=== PATIENT | female | born 1985 | race African-American/Black ===

== ENCOUNTER 2016-06-11 18:21 | Inpatient (IN) | payer OTHER, SELFPAY ==
[2016-06-11] MEDS ORDERED: SODIUM CHLORIDE 0.9% 1,000 ML IV ONE (19:33)
[2016-06-11] MEDS ORDERED: ONDANSETRON 4 MG/2 ML VIAL IVP STA (19:34)
--- NOTE | 2016-06-11 19:36 | ED ---
Abdominal Pain HPI <Quinten Brewer - Last Filed: 06/11/16 21:19> - General Source: patient, RN notes reviewed Mode of arrival: ambulatory Limitations: no limitations <Monica Landaverde - Last Filed: 06/12/16 03:24> - General Chief Complaint: Abdominal Pain Stated Complaint: abdominal pain Time Seen by Provider: 06/11/16 19:28 - History of Present Illness Initial Comments: Patient 30-year-old female presents to the emergency room for evaluation of lower abdominal cramping. Patient states she began developing episodes of diarrhea and vomiting Saturday night into Saturday. Patient states that she took Imodium and has been unable to have a bowel movement for the past 24 hours. Patient states she has been having an increase in abdominal cramping. Patient states pain is diffuse. Patient states she is nauseous and has been vomiting. Patient denies pain or burning during urination, trouble urinating or blood in urine. Patient denies abdominal surgeries. Patient denies fevers or chills. Patient denies any significant past medical history. Patient denies recent travel outside the country. Patient denies new foods. Patient denies alcohol use or illicit drug use. (Monica Landaverde) - Related Data Home Medications Medication Instructions Recorded Confirmed Loperamide [Imodium] 6 mg PO QID PRN 06/11/16 06/11/16 Allergies Allergy/AdvReac Type Severity Reaction Status Date / Time No Known Allergies Allergy Verified 06/11/16 22:45 Review of Systems ROS Other: All systems not noted in ROS Statement are negative. <Quinten Brewer - Last Filed: 06/11/16 21:19> ROS Other: All systems not noted in ROS Statement are negative. <Monica Landaverde - Last Filed: 06/12/16 03:24> ROS Statement: Those systems with pertinent positive or pertinent negative responses have been documented in the HPI. Past Medical History Past Medical History: No Reported History History of Any Multi-Drug Resistant Organisms: None Reported Past Surgical History: No Surgical Hx Reported Past Psychological History: Anxiety, Depression Smoking Status: Former smoker Past Alcohol Use History: None Reported Past Drug Use History: None Reported - Past Family History Mother Family Medical History: Rheumatoid Arthritis (RA) <Monica Landaverde - Last Filed: 06/12/16 03:24> General Exam <Quinten Brewer - Last Filed: 06/11/16 21:19> Limitations: no limitations General appearance: alert, in no apparent distress Head exam: Present: atraumatic, normocephalic, normal inspection Eye exam: Present: normal appearance ENT exam: Present: normal exam Neck exam: Present: normal inspection Respiratory exam: Present: normal lung sounds bilaterally. Absent: respiratory distress Cardiovascular Exam: Present: regular rate, normal rhythm, normal heart sounds GI/Abdominal exam: Present: soft, tenderness (Tenderness on palpating over the right upper quadrant and left upper quadrant), normal bowel sounds. Absent: distended, guarding, rebound, rigid Extremities exam: Present: normal inspection Back exam: Present: normal inspection Neurological exam: Present: alert, oriented X3, CN II-XII intact, normal gait Psychiatric exam: Present: normal affect, normal mood Skin exam: Present: warm, dry, intact, normal color. Absent: rash <Monica Landaverde - Last Filed: 06/12/16 03:24> - General Exam Comments Initial Comments: Laying in exam room, no acute distress. (Monica Landaverde) Medical Decision Making - Lab Data Result diagrams: 06/11/16 19:44 06/11/16 19:44 <Quinten Brewer - Last Filed: 06/11/16 21:19> - Lab Data Result diagrams: 06/11/16 19:44 06/11/16 19:44 <Monica Landaverde - Last Filed: 06/12/16 03:24> - Medical Decision Making Patient is a 30-year-old female presents to the emergency room for evaluation of abdominal pain. Labs significant for acute pancreatitis. Case discussed with Dr. Brewer. Dr. Brewer also evaluated patient. Patient will be admitted for pain control and fluid hydration. I spoke with BRAYAN Ojeda, who agreed to admit for Dr. Dahl. (Monica Landaverde) - Lab Data Lab Results 06/11/16 06/11/16 06/11/16 Range/Units 19:44 19:44 19:44 WBC 7.0 (3.8-10.6) k/uL RBC 4.54 (3.80-5.40) m/uL Hgb 13.5 (11.4-16.0) gm/dL Hct 41.6 (34.0-46.0) % MCV 91.7 (80.0-100.0) fL MCH 29.8 (25.0-35.0) pg MCHC 32.5 (31.0-37.0) g/dL RDW 12.9 (11.5-15.5) % Plt Count 204 (150-450) k/uL Neutrophils % 70 % Lymphocytes % 17 % Monocytes % 8 % Eosinophils % 1 % Basophils % 1 % Neutrophils # 4.9 (1.3-7.7) k/uL Lymphocytes # 1.2 (1.0-4.8) k/uL Monocytes # 0.6 (0-1.0) k/uL Eosinophils # 0.0 (0-0.7) k/uL Basophils # 0.1 (0-0.2) k/uL Sodium 141 (137-145) mmol/L Potassium 3.9 (3.5-5.1) mmol/L Chloride 103 (98-107) mmol/L Carbon Dioxide 25 (22-30) mmol/L Anion Gap 13 mmol/L BUN 11 (7-17) mg/dL Creatinine 0.90 (0.52-1.04) mg/dL Est GFR (MDRD) Af Amer >60 (>60 ml/min/1.73 sqM) Est GFR (MDRD) Non-Af >60 (>60 ml/min/1.73 sqM) Glucose 98 (74-99) mg/dL Calcium 9.6 (8.4-10.2) mg/dL Magnesium 1.7 (1.6-2.3) mg/dL Total Bilirubin 0.5 (0.2-1.3) mg/dL AST 30 (14-36) U/L ALT 30 (9-52) U/L Alkaline Phosphatase 59 (38-126) U/L Total Protein 7.9 (6.3-8.2) g/dL Albumin 4.5 (3.5-5.0) g/dL Amylase 195 H (30-110) U/L Lipase 1003 H (23-300) U/L Urine Color Yellow Urine Appearance Clear (Clear) Urine pH 6.0 (5.0-8.0) Ur Specific Brilliant 1.033 (1.001-1.035) Urine Protein 1+ H (Negative) Urine Glucose (UA) Negative (Negative) Urine Ketones 1+ H (Negative) Urine Blood Negative (Negative) Urine Nitrate Negative (Negative) Urine Bilirubin Negative (Negative) Urine Urobilinogen <2.0 (<2.0) mg/dL Ur Leukocyte Esterase Negative (Negative) Urine RBC 3 (0-5) /hpf Urine WBC 5 (0-5) /hpf Ur Squamous Epith Cells 3 (0-4) /hpf Amorphous Sediment Few H (None) /hpf Urine Mucus Moderate H (None) /hpf Disposition <Quinten Brewer - Last Filed: 06/11/16 21:19> Decision Date: 06/11/16 <Monica Landaverde - Last Filed: 06/12/16 03:24> Clinical Impression: Acute pancreatitis Disposition: ADMITTED IP TO THIS HOSP Condition: Stable
[2016-06-11 20:00] LABS: Basophils # (A) 0.1 k/uL (0-0.2); Basophils % (A) 1 %; CH 29.7; CHCM 32.5; Eosinophils % (A) 1 %; HCT 41.6 % (34.0-46.0); HGB 13.5 gm/dL (11.4-16.0); Luc # (Auto) 0.27; Luc % (Auto) 4; Lymphocytes # (A) 1.2 k/uL (1.0-4.8); Lymphocytes % (A) 17 %; MCH 29.8 pg (25.0-35.0); MCHC 32.5 g/dL (31.0-37.0); MCV 91.7 fL (80.0-100.0); Mean Platelet Volume 8.1; Monocytes # (A) 0.6 k/uL (0-1.0); Monocytes % (A) 8 %; Neutrophils # (A) 4.9 k/uL (1.3-7.7); Neutrophils % (A) 70 %; RBC 4.54 m/uL (3.80-5.40); RDW 12.9 % (11.5-15.5); WBC (Perox) 7.09
--- NOTE | 2016-06-11 20:04 | XR ---
EXAMINATION TYPE: XR KUB DATE OF EXAM: 06/11/2016 7:57 PM COMPARISON: NONE HISTORY: Abdominal pain TECHNIQUE: 2 views FINDINGS: Bowel gas pattern is normal. There is no sign of intestinal obstruction or pneumoperitoneum . There is thoracolumbar levoscoliosis. There are no pathologic calcifications over the kidneys. Feca l pattern is normal. IMPRESSION: Nonacute abdomen.
[2016-06-11 20:09] LABS: ALT 30 U/L (9-52); AST 30 U/L (14-36); Alkaline Phosphatase 59 U/L (38-126); Amylase 195 U/L (30-110); Anion Gap 13 mmol/L; Blood Urea Nitrogen 11 mg/dL (7-17); Calcium 9.6 mg/dL (8.4-10.2); Carbon Dioxide 25 mmol/L (22-30); Chloride 103 mmol/L (98-107); Glucose 98 mg/dL (74-99); Magnesium 1.7 mg/dL (1.6-2.3); Non-African American GFR(MDRD) >60 (>60 ml/min/1.73 sqM); Potassium 3.9 mmol/L (3.5-5.1); Sodium 141 mmol/L (137-145); Total Bilirubin 0.5 mg/dL (0.2-1.3); Total Protein 7.9 g/dL (6.3-8.2)
[2016-06-11 20:10] LABS: Amorphous Sediment,Urine Few /hpf; Appearance,Urine Clear (Clear); Bilirubin,Urine Negative (Negative); Glucose,Urine (UA) Negative (Negative); Ketones,Urine 1+ (Negative); Leukocyte Esterase,Urine Negative (Negative); Mucus,Urine Moderate /hpf; Nitrite,Urine Negative (Negative); Particle Count 8151; Protein,Urine 1+ (Negative); RBC,Urine 3 /hpf (0-5); Specific Gravity,Urine 1.033 (1.001-1.035); Squamous Epithelial Cell,Urine 3 /hpf (0-4); UA Billing (MACRO vs. MICRO) MICRO; Urobilinogen,Urine <2.0 mg/dL (<2.0); WBC,Urine 5 /hpf (0-5)
[2016-06-11] MEDS ORDERED: HYDROmorphone 1 MG/ML 1 ML SYRINGE IVP STA (20:42)
[2016-06-11] MEDS ORDERED: ONDANSETRON 4 MG/2 ML VIAL IVP PRN (21:31)
[2016-06-11] MEDS ORDERED: NALOXONE 0.4 MG/ML 1 ML VIAL IV PRN (21:31)
[2016-06-11] MEDS: SODIUM CHLORIDE 0.9% 1,000 ML IV SCH (21:40)
[2016-06-11 22:53] VITALS: BMI 20.5
[2016-06-12] MEDS: HYDROmorphone 1 MG/ML 1 ML SYRINGE IV PRN ×9 (00:17→23:46)
[2016-06-12] MEDS: KETOROLAC 30 MG/ML 1 ML VIAL IVP PRN ×2 (01:21→06:45)
[2016-06-12] MEDS: SODIUM CHLORIDE 0.9% 1,000 ML IV SCH ×2 (06:47→16:54)
[2016-06-12 07:53] LABS: Amylase 237 U/L (30-110)
[2016-06-12] MEDS: PANTOPRAZOLE 40 MG/10 ML VIAL IVP SCH (13:44)
--- NOTE | 2016-06-12 14:40 | US ---
EXAMINATION TYPE: US gallbladder DATE OF EXAM: 06/12/2016 2:11 PM COMPARISON: NONE CLINICAL HISTORY: pancreatitis. Diarrhea, high panc labs, stomach pains EXAM MEASUREMENTS: Liver Length: 15.3 cm Gallbladder Wall: 0.1 cm CBD: 0.2 cm CHD: 0.2 cm Right Kidney: 10.1 x 5.4 x 3.6 cm FINDINGS: Pancreas: main pancreatic duct= 1.2 mm Liver: wnl Gallbladder: wnl Evidence for sonographic Pretty's sign: neg CBD: wnl Right Kidney: wnl IMPRESSION: 1. Eye contact duct is mildly prominent pancreas is somewhat hypoechoic correlate for pancreatitis. F ollow-up CT scan recommended.
--- NOTE | 2016-06-12 18:49 | HP ---
DATE OF ADMISSION: Patient is a very pleasant 30-year-old female who came in with complaints of abdominal pain which started 2 days ago. Patient also has symptoms consistent with poisoning a couple days ago. Patient has had multiple episodes of nausea, vomiting, diarrhea and diffuse abdominal pain. Patient does not point to epigastric area, although patient was found to have elevated lipase and amylase on admission. Patient took Imodium, after which she started having pain. Patient is not an alcoholic. Ultrasound of the abdomen did not show any gallstones. Patient has severe, 8 to 9 out of 10, diffuse abdominal pain which is better now. Patient is not nauseous any more. Will start her on diet, advance diet as tolerated. Patient's amylase and lipase on admission were 197 and 1003; now 237 and 1217. Rest of the labs are essentially within normal limits. REVIEW OF SYSTEMS: CONSTITUTIONAL: No fever, no malaise, no fatigue. HEENT: No recent visual problems or hearing problems. Denied any sore throat. CARDIOVASCULAR: No chest pain, orthopnea, PND, no palpitations, no syncope. PULMONARY: No shortness of breath, no cough, no hemoptysis. GASTROINTESTINAL: As described in HPI. NEUROLOGICAL: No headaches, no weakness, no numbness. HEMATOLOGICAL: Denies any bleeding or petechiae. GENITOURINARY: Denies any burning micturition, frequency, or urgency. MUSCULOSKELETAL/RHEUMATOLOGICAL: Denies any joint pain, swelling, or any muscle pain. ENDOCRINE: Denies any polyuria or polydipsia. The rest of the 14 point review of systems is negative. Home medications include loperamide. ALLERGIES: NO KNOWN DRUG ALLERGIES. PAST MEDICAL HISTORY: 1. Anxiety. 2. Depression. SOCIAL HISTORY: Former smoker. Quit smoking years ago. Denied any alcohol abuse or any drug abuse. FAMILY HISTORY: Mother had rheumatoid arthritis. PHYSICAL EXAMINATION: VITAL SIGNS: Temperature 97.4, pulse of 46, respiratory rate of 16. Blood pressure is 96/61. Saturating at 100% on room air. GENERAL: The patient is alert and oriented x3, not in any acute distress. Well developed, well nourished. HEENT: Pupils are round and equally reacting to light. EOMI. No scleral icterus. No conjunctival pallor. Normocephalic, atraumatic. No pharyngeal erythema. No thyromegaly. CARDIOVASCULAR: S1 and S2 present. No murmurs, rubs, or gallops. PULMONARY: Chest is clear to auscultation, no wheezing or crackles. ABDOMEN: Minimal diffuse abdominal tenderness. No rebound or rigidity. No peritoneal signs were appreciated. Patient's abdomen is mostly soft. MUSCULOSKELETAL: No joint swelling or deformity. EXTREMITIES: No cyanosis, clubbing, or pedal edema. NEUROLOGICAL: Gross neurological examination did not reveal any focal deficits. SKIN: No rashes. LABORATORY DATA: As mentioned above. ASSESSMENT AND PLAN: 1. Possible pancreatitis. Etiology is unknown. I will obtain a lipid panel tomorrow. Patient is not an alcoholic. Will advance the diet as tolerated. IV fluids will be continued. Continue with pain medications. Discontinue Ketorolac because of possibility of gastritis. Continue with Dilaudid. I asked her to avoid Dilaudid as much as possible. Patient will be started on clear liquid diet if she is able to tolerate. Will advance it as tolerated. If patient is doing well symptomatically, patient will be discharged tomorrow. 2. Possible gastritis. 3. History of nicotine use in the past. 4. Anxiety. 5. Depression.
[2016-06-13] MEDS: SODIUM CHLORIDE 0.9% 1,000 ML IV SCH ×3 (00:23→16:19)
[2016-06-13] MEDS: HYDROmorphone 1 MG/ML 1 ML SYRINGE IV PRN ×7 (03:04→20:58)
[2016-06-13 06:44] LABS: CHCM 31.2; HDW 2.23; Hypochromasia Slight; MCH 29.7 pg (25.0-35.0); MCHC 31.7 g/dL (31.0-37.0); MCV 93.4 fL (80.0-100.0); Mean Platelet Volume 9.2; RBC 3.43 m/uL (3.80-5.40); RDW 12.6 % (11.5-15.5); WBC 4.9 k/uL (3.8-10.6)
[2016-06-13 07:01] LABS: ALT 25 U/L (9-52); AST 18 U/L (14-36); Alkaline Phosphatase 46 U/L (38-126); Anion Gap 6 mmol/L; Blood Urea Nitrogen 10 mg/dL (7-17); Calcium 8.1 mg/dL (8.4-10.2); Carbon Dioxide 24 mmol/L (22-30); Chloride 109 mmol/L (98-107); Cholesterol 140 mg/dL (<200); Glucose 80 mg/dL (74-99); HDL Cholesterol 54 mg/dL (40-60); Non-African American GFR(MDRD) >60 (>60 ml/min/1.73 sqM); Potassium 3.6 mmol/L (3.5-5.1); Sodium 139 mmol/L (137-145); Total Bilirubin 0.4 mg/dL (0.2-1.3); Total Protein 5.6 g/dL (6.3-8.2); Triglycerides 74 mg/dL (<150)
[2016-06-13 07:06] LABS: HGB 10.2 gm/dL (11.4-16.0)
[2016-06-13] MEDS: PANTOPRAZOLE 40 MG/10 ML VIAL IVP SCH (08:25)
[2016-06-13] MEDS: traMADol 50 MG TAB PO PRN (14:25)
--- NOTE | 2016-06-13 16:21 | PN ---
Patient a 30-year-old who came in with possibility of idiopathic pancreatitis. Patient's pain did improve, but she still gets pain whenever she eats. There is a possibility of gastritis, because of which I will use tramadol, avoid Dilaudid, and keep her on clear liquid diet at this time. REVIEW OF SYSTEMS: CARDIOVASCULAR: No chest pain, no orthopnea, no PND, no palpitations. PULMONARY: Denied any shortness of breath. No cough or hemoptysis. GASTROINTESTINAL: As described in HPI. NEUROLOGIC: No headaches, no weakness, no numbness. Medications were reviewed. PHYSICAL EXAMINATION: VITAL SIGNS: Temperature 97.8, pulse of 46, respiratory rate of 16, blood pressure is 115/63, saturating 100% on room air. GENERAL: The patient is alert and oriented x3, not in any acute distress. Well developed, well nourished. HEENT: Pupils are round and equally reacting to light. EOMI. No scleral icterus. No conjunctival pallor. Normocephalic, atraumatic. No pharyngeal erythema. No thyromegaly. CARDIOVASCULAR: S1 and S2 present. No murmurs, rubs, or gallops. PULMONARY: Chest is clear to auscultation, no wheezing or crackles. ABDOMEN: Continued minimal epigastric abdominal tenderness. No rebound or rigidity. Bowel sounds are present. MUSCULOSKELETAL: No joint swelling or deformity. EXTREMITIES: No cyanosis, clubbing, or pedal edema. NEUROLOGICAL: Gross neurological examination did not reveal any focal deficits. SKIN: No rashes. ASSESSMENT AND PLAN: 1. Possible idiopathic pancreatitis with gastritis. Continue with Protonix. Tramadol will be added and try to avoid Dilaudid as much as possible. 2. Nicotine abuse. Counseling was provided. 3. Anxiety. 4. Depression.
[2016-06-14] MEDS: HYDROmorphone 1 MG/ML 1 ML SYRINGE IV PRN ×4 (00:31→17:07)
[2016-06-14 00:43] VITALS: RESP 16
[2016-06-14] MEDS: SODIUM CHLORIDE 0.9% 1,000 ML IV SCH ×2 (01:49→11:15)
[2016-06-14] MEDS: traMADol 50 MG TAB PO PRN ×2 (06:31→15:26)
[2016-06-14] MEDS: PANTOPRAZOLE 40 MG/10 ML VIAL IVP SCH (08:59)
[2016-06-14] MEDS ORDERED: RX INFO: IV CONTRAST WAS GIVEN 1 EACH MISC MISCELLANE PRN (15:48)
[2016-06-14] MEDS: IOHEXOL 350 MG/ML 25 ML BOTTLE (ORAL USE) PO PRN ×2 (16:03→17:07)
[2016-06-14 17:08] VITALS: BP 134/83; PULSE 51; TEMP 99.3
--- NOTE | 2016-06-14 18:36 | CT ---
EXAMINATION TYPE: CT abdomen pelvis w con DATE OF EXAM: 06/14/2016 6:11 PM COMPARISON: NONE HISTORY: Pt states of pancreatitis. CT DLP: 407.5 mGycm Automated exposure control for dose reduction was used. TECHNIQUE: Helical acquisition of images was performed from the lung bases through the pelvis. CONTRAST: Performed with Oral Contrast and with IV Contrast, patient injected with 100 mL of Omnipaque 300. FINDINGS: Lung bases are clear. There is no pleural effusion. Heart size is normal. Liver spleen pancreas gallbladder appear normal. Bile ducts are not dilated. There is no adrenal mass . Kidneys show satisfactory contrast opacification. There is no hydronephrosis. I see no sign of panc reatitis. There are no dilated loops. There is air in the appendix. There is no sign of appendicitis. There is diffuse thickening of the wall of the sigmoid colon up to 1 cm. There is no pelvic mass. Tello dder distends smoothly. There is probably of 5 cm fibroid on the anterior uterine fundus. IMPRESSION: THERE IS WALL THICKENING INVOLVING THE SIGMOID COLON THAT IS SUGGESTIVE OF MILD NONSPECIFIC COLITIS. THERE IS PROBABLY A UTERINE FUNDAL FIBROID. NORMAL APPENDIX. Pancreas appears normal and there is no sign of pancreatitis.
--- NOTE | 2016-06-15 08:49 | DS ---
DATE OF ADMISSION: 06/11/2016 DATE OF DISCHARGE: 06/14/2016 The patient is a 30-year-old admitted with idiopathic pancreatitis. Patient had idiopathic pancreatitis. Patient's pain although improved, but is still requiring some pain medications and not able to eat well. Because of that, I wanted to look at alternate diagnosis and obtained CT of the abdomen. The CT of the abdomen is negative. As patient is able to tolerate full liquid diet, will let her go home with tramadol for pain and omeprazole for gastritis. REVIEW OF SYSTEMS: CARDIOVASCULAR: No chest pain, no orthopnea, no PND, no palpitations. PULMONARY: Denied any shortness of breath. No cough or hemoptysis. GASTROINTESTINAL: As described in HPI. NEUROLOGIC: No headaches, no weakness, no numbness. PHYSICAL EXAMINATION: VITAL SIGNS: Temperature 99.3, pulse of 53, respiratory rate of 16, blood pressure 134/83, saturating at 100% on room air. GENERAL: The patient is alert and oriented x3, not in any acute distress. Well developed, well nourished. HEENT: Pupils are round and equally reacting to light. EOMI. No scleral icterus. No conjunctival pallor. Normocephalic, atraumatic. No pharyngeal erythema. No thyromegaly. CARDIOVASCULAR: S1 and S2 present. No murmurs, rubs, or gallops. PULMONARY: Chest is clear to auscultation, no wheezing or crackles. ABDOMEN: Soft, nontender, nondistended, normoactive bowel sounds. No palpable organomegaly. MUSCULOSKELETAL: No joint swelling or deformity. EXTREMITIES: No cyanosis, clubbing, or pedal edema. NEUROLOGICAL: Gross neurological examination did not reveal any focal deficits. SKIN: No rashes. ASSESSMENT AND PLAN: 1. Possible idiopathic pancreatitis. 2. Possible gastritis. 3. Nicotine abuse. 4. Anxiety. 5. Depression. PLAN: Continue with present medications that is Protonix. If CT of the abdomen is negative, patient will be discharged on Prilosec and tramadol with diagnosis of idiopathic pancreatitis and gastritis.
== END 2016-06-14 20:00 | disposition home or self-care (01) | DRG 440 ==
LOC: EC 18:21 → 6PED 21:21
PROVIDERS: ADMIT Internal Medicine; ATTEND Internal Medicine
DX: K85.00 Idiopathic acute pancreatitis without necrosis or infection (principal); F32.9 Major depressive disorder, single episode, unspecified; F41.9 Anxiety disorder, unspecified; K29.70 Gastritis, unspecified, without bleeding; Z87.891 Personal history of nicotine dependence; Z79.899 Other long term (current) drug therapy
CPT/HCPCS: 36415; 74000; 74177; 76705; 80053; 80061; 81001; 82150; 83690; 83735; 85025; 85027; 96361; 96374; 96375; 99285

== ENCOUNTER → 2019-01-29 | Outpatient (CLI) | payer BC ==
--- NOTE | 2019-01-30 09:03 | USB ---
Reason for exam: clinical finding. History: Patient is nulliparous. Family history of breast cancer in grandmother. Physical Findings: Nurse Summary: multiple palpable areas bilaterally, patient states increasing pain and size of lumps (nurse TM). US Breast BILAT Right complete breast ultrasound includes all four quadrants, the retroareolar region and axilla. Finding demonstrates a 0.4 x 0.2 x 0.3cm lesion too small to characterize at 3 o'clock. Left complete breast ultrasound includes all four quadrants, the retroareolar region and axilla. Finding demonstrates a 0.4 x 0.3 x 0.5cm lesion too small to characterize at 2 o'clock and a 0.3 x 0.2 x 0.3cm lesion too small to characterize at 5 o'clock. These results were verbally communicated with the patient and result sheet given to the patient on 01/29/19. ASSESSMENT: Probably benign, BI-RAD 3 RECOMMENDATION: Ultrasound of both breasts in 6 months.
== END | disposition home or self-care (01) ==
LOC: RADUSWWP 14:58
PROVIDERS: ATTEND Obstetrics & Gynecology
DX: N60.01 Solitary cyst of right breast (principal); N60.02 Solitary cyst of left breast

== ENCOUNTER → 2021-07-28 | Outpatient (CLI) | payer BC ==
--- NOTE | 2021-07-28 09:53 | CT ---
EXAMINATION TYPE: CT knee LT wo con DATE OF EXAM: 07/28/2021 COMPARISON: None HISTORY: Nondisplaced fracture of lateral condyle CT DLP: 500.7 mGycm Automated exposure control for dose reduction was used. Helical imaging through the left knee, 3-dime nsional reconstructions performed on an alternate workstation FINDINGS: There is a tibial plateau fracture lateral aspect of the proximal tibia with depression, minimal disp lacement. There is associated joint effusion. No dislocation. IMPRESSION: TIBIAL PLATEAU FRACTURE.
== END | disposition home or self-care (01) ==
LOC: RADCTMAIN 08:22
PROVIDERS: ATTEND Orthopaedic Surgery
DX: S82.142A Displaced bicondylar fracture of left tibia, initial encounter for closed fracture (principal); X58.XXXA Exposure to other specified factors, initial encounter